=== PATIENT | female | born 2000 | race Two or more races ===

== ENCOUNTER 2024-07-28 17:55 | Emergency (ER) | payer OTHER ==
[~2024-07-28] VITALS: Ht 154.9 cm; Wt 44.5 kg
[2024-07-28] MEDS ORDERED: REGLAN5 MG/5 ML PO (19:30)
[2024-07-28] MEDS ORDERED: PEPCID AC20 MG (19:30)
[2024-07-28] MEDS ORDERED: ONDANSETRON HCL 2 MG/ML VIAL IV STA (19:47)
[2024-07-28] MEDS ORDERED: 0.9 % SODIUM CHLORIDE 1,000 ML IV STA (19:47)
[2024-07-28 20:26] LABS: HEMATOCRIT 38.5 % (36.0-45.00); HEMOGLOBIN 13.3 g/dL (12.0-15.00); MEAN CELL VOLUME 94.3 fL (80.00-100.00); MEAN CORPUSCULAR HEMOGLOBIN 32.7 pg (27.00-32.0); MEAN CORPUSCULAR HGB CONC 34.7 g/dl (32.0-36.0); PLATELET COUNT 324 K/uL (150-450); RED BLOOD COUNT 4.08 M/uL (4.00-6.00); RED CELL DISTRIBUTION WIDTH 12.9 % (11.5-14.5)
[2024-07-28 20:54] LABS: CREATININE SERUM 0.59 mg/dL (0.55-1.02); GFR 128.67; POTASSIUM 3.03 mEq/L (3.5-5.1)
[2024-07-28 23:44] LABS: URINE APPEARANCE Clear; URINE BILIRRUBIN Negative (NEGATIVE); URINE BLOOD Moderate; URINE COLOR Yellow; URINE GLUCOSE Negative (NEGATIVE); URINE LEUKOCYTE Trace; URINE NITRATE Negative; URINE PROTEIN Trace (NEGATIVE)
[2024-07-28 23:47] LABS: URINE BACTERIA 608.2 uL (0.0-1933); URINE EPITHELIAL CELLS 67.8 uL (0.0-38.8); URINE RBC 32.5 uL (0.0-20.8); URINE WBC 30.7 uL (0.0-23.2)
[2024-07-28 23:58] LABS: URINE CAST 0.14 uL (0.0-1.40); URINE KETONE >=160 (NEGATIVE)
[2024-07-29] MEDS ORDERED: PROMETHAZINE HCL 50 MG/ML AMPUL IM STA (03:51)
[2024-07-29] MEDS ORDERED: FAMOTIDINE/PF 20 MG/2 ML VIAL IV PUSH STA (03:51)
[2024-07-29 04:40] LABS: ALBUMIN 3.6 gm/dL (3.4-5.0); BILIRUBIN TOTAL 0.8 mg/dL (0.3-1.2); BILIRUBIN,CONJUGATED 0.22 mg/dL (0.0-0.2); BILIRUBIN,UNCONJUGATED 0.58 mg/dL (0.0-0.6); TOTAL PROTEIN 6.9 gm/dL (6.4-8.2)
[2024-07-29] MEDS ORDERED: PHENERGAN25 MG PO (06:55)
[2024-07-29] MEDS ORDERED: FAMOTIDINE40 MG PO (06:55)
[2024-07-29] MEDS ORDERED: PROTONIX40 M1 PO (06:55)
== END 2024-07-29 07:20 ==
LOC: ER 17:57
PROVIDERS: Emergency Medicine; General Practice
DX: K52.89 Other specified noninfective gastroenteritis and colitis (principal); R10.9 Unspecified abdominal pain; Z88.6 Allergy status to analgesic agent

== ENCOUNTER 2024-08-08 11:18 | Emergency (ER) | payer OTHER ==
[~2024-08-08] VITALS: Ht 154.9 cm; Wt 44.5 kg
[~2024-08-08 11:18] MED LIST: FAMOTIDINE40 MG PO; PEPCID AC20 MG; PHENERGAN25 MG PO; PROTONIX40 M1 PO; REGLAN5 MG/5 ML PO
[2024-08-08 12:02] VITALS: BP 114/68; O2SAT 100
== END 2024-08-08 16:36 | disposition home or self-care (01) ==
LOC: ER 11:20
DX: N93.8 Other specified abnormal uterine and vaginal bleeding (principal); Z88.8 Allergy status to other drugs, medicaments and biological substances